=== PATIENT | female | born 1975 | race Caucasian/White ===

== ENCOUNTER 2018-01-22 19:52 | Emergency (ER) | payer OTHER ==
[~2018-01-22] VITALS: Ht 157.5 cm; Wt 61.2 kg
[~2018-01-22 19:52] MED LIST: AMITRIPTYLINE H10 M3 PO; CARISOPRODOL 3350 MG PO; CLONAZEPAM 1 MG1 M1 PO; FLEXERIL PO; HYDROCODON-ACE1 EAC7 PO; IBUPROFEN 800800 MG PO; KEFLEX250 M1 PO; MEDROLDOSEPACK PO; NEO-BACIT-POLY3.5 GM OP; NORCO 5-325 TA1 EAC1 PO; OMEPRAZOLE; PROAIR HFA8.5 GM INH; REQUIP1 MG PO; ROBAXIN 750 MG750 M1 PO
[2018-01-22 20:21] LABS: URINE BLOOD 3+ (Negative); URINE CLARITY CLEAR; URINE COLOR YELLOW; URINE GLUCOSE-RANDOM NEGATIVE (Negative); URINE KETONES NEGATIVE (Negative); URINE PROTEIN TRACE (Negative)
[2018-01-22 20:24] LABS: ICTOTEST (BILI CONFIRMATORY) Negative (Negative); URINE BILIRUBIN 1+ (Negative); URINE LEUKOCYTES-REFLEX 3+ (Negative); URINE NITRITE-REFLEX POSITIVE (Negative)
[2018-01-22 20:29] LABS: CALCIUM OXALATE 0-3 Few /LPF (None Seen)
[2018-01-22 20:30] LABS: ABSOLUTE BASOPHILS 0.1 thou/uL (0.0-0.2); ABSOLUTE EOSINOPHILS 0.3 thou/uL (0.0-0.7); ABSOLUTE LYMPHOCYTES 3.6 thou/uL (0.8-5.3); ABSOLUTE MONOCYTES 0.9 thou/uL (0.0-1.2); ABSOLUTE NEUTROPHILS 3.9 thou/uL (1.6-8.1); BASOPHILS 0.8 %; EOSINOPHILS 3.2 %; HEMATOCRIT 43.7 % (37.0-47.0); HEMOGLOBIN 14.6 gm/dL (12.0-15.0); LYMPHOCYTES 41.1 %; MCH 28.5 pg (26.0-34.0); MCHC 33.3 g/dL (28.0-37.0); MCV 85.5 fL (80.0-100.0); MONOCYTES 10.2 %; MPV 9.9 fl. (7.2-11.1); NUCLEATED RBCS 0 /100WBC; PLATELET COUNT* 217 thou/uL (150-400); POLYS 44.7 %; RBC 5.11 mil/uL (4.20-5.00); RDW-CV 14.4 % (10.5-14.5); WBC 8.8 thou/uL (4.0-11.0)
[2018-01-22 20:30] LABS: BACTERIA-REFLEX >30 Many /HPF (None Seen); MUCUS None Seen strn/LPF (None Seen); SQUAMOUS 0-3 Few /LPF (0-3); URINE WBC-REFLEX >25 Many /HPF (0-5); WBC CLUMPS Few (None Seen)
[2018-01-22 20:31] LABS: CASTS None Seen /LPF (None Seen)
[2018-01-22 20:38] LABS: ANION GAP 10 mmol/L (7-16); BUN 19 mg/dL (7-18); CALCIUM 8.8 mg/dL (8.5-10.1); CHLORIDE 104 mmol/L (98-107); CO2 27 mmol/L (21-32); CREATININE 1.1 mg/dL (0.6-1.3); GLUCOSE 98 mg/dL (70-99); POTASSIUM 3.5 mmol/L (3.5-5.1); SODIUM 141 mmol/L (136-145)
[2018-01-22 20:44] LABS: ALBUMIN 3.9 g/dL (3.4-5.0); ALKALINE PHOSPHATASE 73 U/L (46-116); SGOT 30 U/L (15-37); SGPT 31 U/L (30-65); TOTAL BILIRUBIN 0.8 mg/dL (<0.1-1.0); TOTAL PROTEIN 8.5 g/dL (6.4-8.2); TROPONIN-I LEVEL <0.06 ng/mL (<0.06)
[2018-01-22] MEDS ORDERED: ZOFRAN ODT4 MG PO (21:24)
[2018-01-22] MEDS ORDERED: BACTRIM DS TAB1 EACH PO (21:24)
[2018-01-22 21:41] VITALS: BP 122/82
--- NOTE | 2018-01-23 13:01 | EKG ---
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 : 1975 Requested By: Charo Franz Order Number: [id number] MD: Brendan Wylie Measurements Intervals [place] Rate: 107 P: 83 [place]: 123 QRS: 71 QRSD: 103 T: 60 QT: 350 QTc: 467 Interpretive Statements Sinus tachycardia Probable left atrial enlargement Compared to ECG 01/17/2017 18:14:30 No significant changes Electronically Signed On 01-23-2018 13:01:43 OUT[employer]ARD MOTOR [employer]SEMBLER by Brendan Wylie [email or web address] <ELECTRONICALLY SIGNED> By: Brendan Wylie MD, [facility] 01/23/18 1301 18 18 Brendan Wylie MD, FACC /EPI
== END 2018-01-22 21:42 | disposition home or self-care (01) ==
LOC: M.ERS 19:52
PROVIDERS: Physician Assistant
DX: N39.0 Urinary tract infection, site not specified (principal); K21.9 Gastro-esophageal reflux disease without esophagitis; F32.9 Major depressive disorder, single episode, unspecified; F41.9 Anxiety disorder, unspecified; F17.200 Nicotine dependence, unspecified, uncomplicated; Z88.6 Allergy status to analgesic agent

== ENCOUNTER 2018-05-02 09:47 | Emergency (ER) | payer OTHER ==
[~2018-05-02] VITALS: Ht 157.5 cm; Wt 56.7 kg
[~2018-05-02 09:47] MED LIST changes: +BACTRIM DS TAB1 EACH PO; +ZOFRAN ODT4 MG PO
[2018-05-02] MEDS ORDERED: LEXAPRO20 MG PO (09:59)
[2018-05-02] MEDS ORDERED: XANAX1 MG PO (09:59)
[2018-05-02] MEDS ORDERED: CARISOPRODOL 3350 MG PO (10:00)
[2018-05-02] MEDS ORDERED: IBUPROFEN 800800 M1 PO (10:00)
[2018-05-02 10:40] LABS: ABSOLUTE BASOPHILS 0.1 thou/uL (0.0-0.2); ABSOLUTE EOSINOPHILS 0.2 thou/uL (0.0-0.7); ABSOLUTE LYMPHOCYTES 2.4 thou/uL (0.8-5.3); ABSOLUTE MONOCYTES 0.8 thou/uL (0.0-1.2); ABSOLUTE NEUTROPHILS 2.9 thou/uL (1.6-8.1); EOSINOPHILS 3.5 %; HEMATOCRIT 43.6 % (37.0-47.0); HEMOGLOBIN 14.5 gm/dL (12.0-15.0); LYMPHOCYTES 37.3 %; MCH 28.7 pg (26.0-34.0); MCHC 33.2 g/dL (28.0-37.0); MCV 86.5 fL (80.0-100.0); MPV 9.7 fl. (7.2-11.1); NUCLEATED RBCS 0 /100WBC; PLATELET COUNT* 192 thou/uL (150-400); POLYS 45.2 %; RBC 5.05 mil/uL (4.20-5.00); RDW-CV 15.3 % (10.5-14.5); WBC 6.5 thou/uL (4.0-11.0)
[2018-05-02 10:48] LABS: CALCIUM 8.4 mg/dL (8.5-10.1); CREATININE 1.2 mg/dL (0.6-1.3); POTASSIUM 3.7 mmol/L (3.5-5.1)
[2018-05-02 10:53] LABS: ALBUMIN 3.1 g/dL (3.4-5.0); TOTAL BILIRUBIN 0.3 mg/dL (<0.1-1.0); TOTAL PROTEIN 6.9 g/dL (6.4-8.2)
[2018-05-02 11:01] LABS: URINE BILIRUBIN NEGATIVE (Negative); URINE BLOOD NEGATIVE (Negative); URINE CLARITY CLEAR; URINE COLOR YELLOW; URINE GLUCOSE-RANDOM NEGATIVE (Negative); URINE KETONES NEGATIVE (Negative); URINE NITRITE-REFLEX NEGATIVE (Negative); URINE PROTEIN NEGATIVE (Negative)
[2018-05-02 11:02] LABS: URINE LEUKOCYTES-REFLEX 2+ (Negative)
[2018-05-02] MEDS ORDERED: IBUPROFEN 600600 M1 PO (11:02)
[2018-05-02] MEDS ORDERED: ERYTHROMYCIN E3.5 G3 OPHTHALMIC (11:02)
[2018-05-02] MEDS ORDERED: NORCO 5-325 TA1 EAC1 PO (11:03)
[2018-05-02 11:09] LABS: SQUAMOUS >10 Many /LPF (0-3)
[2018-05-02 11:10] LABS: BACTERIA-REFLEX >30 Many /HPF (None Seen); CASTS None Seen /LPF (None Seen); CRYSTALS None Seen /LPF (None Seen); URINE RBC 0-2 Rare /HPF (0-2); URINE WBC-REFLEX 6-15 Few /HPF (0-5)
[2018-05-02] MEDS ORDERED: MACROBID 100 M100 M1 PO (11:11)
[2018-05-02 11:31] VITALS: BP 124/85
== END 2018-05-02 11:32 | disposition home or self-care (01) ==
LOC: M.ERS 09:47
PROVIDERS: Nurse Practitioner Family
DX: H11.421 Conjunctival edema, right eye (principal); N39.0 Urinary tract infection, site not specified; K21.9 Gastro-esophageal reflux disease without esophagitis; F32.9 Major depressive disorder, single episode, unspecified; F41.9 Anxiety disorder, unspecified; F17.200 Nicotine dependence, unspecified, uncomplicated; Z88.8 Allergy status to other drugs, medicaments and biological substances; Z88.6 Allergy status to analgesic agent

== ENCOUNTER 2018-06-09 16:33 | Emergency (ER) | payer OTHER ==
[~2018-06-09] VITALS: Ht 157.5 cm; Wt 61.2 kg
[~2018-06-09 16:33] MED LIST changes: +ERYTHROMYCIN E3.5 G3 OPHTHALMIC; +IBUPROFEN 600600 M1 PO; +IBUPROFEN 800800 M1 PO; +LEXAPRO20 MG PO; +MACROBID 100 M100 M1 PO; +XANAX1 MG PO
[2018-06-09] MEDS ORDERED: HYDROXYZINE HCL25 M1 PO (17:07)
[2018-06-09] MEDS ORDERED: MEDROLDOSEPACK PO (17:07)
[2018-06-09 17:29] VITALS: BP 135/87
== END 2018-06-09 17:31 | disposition home or self-care (01) ==
LOC: M.ERS 16:33
DX: S90.862A Insect bite (nonvenomous), left foot, initial encounter (principal); S90.861A Insect bite (nonvenomous), right foot, initial encounter; B88.0 Other acariasis; K21.9 Gastro-esophageal reflux disease without esophagitis; F32.9 Major depressive disorder, single episode, unspecified; F41.9 Anxiety disorder, unspecified; Z88.8 Allergy status to other drugs, medicaments and biological substances; W57.XXXA Bitten or stung by nonvenomous insect and other nonvenomous arthropods, initial encounter; Y93.89 Activity, other specified; Y92.89 Other specified places as the place of occurrence of the external cause; Y99.8 Other external cause status

== ENCOUNTER 2019-03-28 02:34 | Emergency (ER) | payer OTHER ==
[~2019-03-28] VITALS: Ht 162.6 cm; Wt 55.3 kg
[~2019-03-28 02:34] MED LIST changes: +HYDROXYZINE HCL25 M1 PO
[2019-03-28] MEDS ORDERED: BACTRIM DS TAB1 EACH PO ×2 (02:50→03:10)
[2019-03-28] MEDS ORDERED: NORCO 5-325 TA1 EACH PO ×2 (02:50→03:10)
[2019-03-28 03:14] VITALS: BP 144/85
--- NOTE | 2019-03-28 11:43 | EKG ---
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
== END 2019-03-28 03:42 | disposition home or self-care (01) ==
LOC: M.ERS 02:34
DX: S60.561A Insect bite (nonvenomous) of right hand, initial encounter (principal); F17.210 Nicotine dependence, cigarettes, uncomplicated; Z88.8 Allergy status to other drugs, medicaments and biological substances; W57.XXXA Bitten or stung by nonvenomous insect and other nonvenomous arthropods, initial encounter; Y93.89 Activity, other specified; Y92.89 Other specified places as the place of occurrence of the external cause; Y99.8 Other external cause status

== ENCOUNTER 2019-04-01 22:11 | Emergency (ER) | payer OTHER ==
[~2019-04-01] VITALS: Ht 157.5 cm; Wt 53.8 kg
[~2019-04-01 22:11] MED LIST changes: +NORCO 5-325 TA1 EACH PO
[2019-04-01] MEDS ORDERED: VISTARIL 25 MG25 M1 PO (22:43)
[2019-04-01] MEDS ORDERED: NORCO 5-325 TA1 EACH PO (22:43)
[2019-04-01 23:06] VITALS: BP 120/76
== END 2019-04-01 23:06 | disposition home or self-care (01) ==
LOC: M.ERS 22:11
DX: L02.511 Cutaneous abscess of right hand (principal); Z76.0 Encounter for issue of repeat prescription; F17.210 Nicotine dependence, cigarettes, uncomplicated; F32.9 Major depressive disorder, single episode, unspecified; F41.9 Anxiety disorder, unspecified; K21.9 Gastro-esophageal reflux disease without esophagitis; Z88.8 Allergy status to other drugs, medicaments and biological substances; Z98.890 Other specified postprocedural states

== ENCOUNTER 2019-11-14 14:49 | Emergency (ER) | payer OTHER ==
[~2019-11-14] VITALS: Ht 160 cm; Wt 54.9 kg
[~2019-11-14 14:49] MED LIST changes: +VISTARIL 25 MG25 M1 PO
[2019-11-14 17:05] LABS: ABSOLUTE BASOPHILS 0.1 thou/uL (0.0-0.2); ABSOLUTE EOSINOPHILS 0.1 thou/uL (0.0-0.7); ABSOLUTE LYMPHOCYTES 2.4 thou/uL (0.8-5.3); ABSOLUTE MONOCYTES 0.7 thou/uL (0.0-1.2); ABSOLUTE NEUTROPHILS 7.4 thou/uL (1.6-8.1); BASOPHILS 0.6 %; EOSINOPHILS 0.5 %; HEMATOCRIT 48.3 % (37.0-47.0); HEMOGLOBIN 16.6 gm/dL (12.0-15.0); LYMPHOCYTES 22.5 %; MCH 30.1 pg (26.0-34.0); MCHC 34.3 g/dL (28.0-37.0); MCV 87.6 fL (80.0-100.0); MONOCYTES 6.6 %; MPV 9.4 fl. (7.2-11.1); NUCLEATED RBCS 0 /100WBC; PLATELET COUNT* 237 thou/uL (150-400); POLYS 69.8 %; RBC 5.52 mil/uL (4.20-5.00); RDW-CV 12.9 % (10.5-14.5); WBC 10.6 thou/uL (4.0-11.0)
[2019-11-14 17:09] LABS: CALCIUM 9.5 mg/dL (8.5-10.1); CREATININE 0.9 mg/dL (0.6-1.3); POTASSIUM 3.9 mmol/L (3.5-5.1)
[2019-11-14 17:13] LABS: TOTAL BILIRUBIN 0.3 mg/dL (<0.1-1.0); TOTAL PROTEIN 8.3 g/dL (6.4-8.2); URIC ACID* 3.4 mg/dL (2.6-7.2)
[2019-11-14 18:24] LABS: ESR (SEDRATE) 1 mm/hr (0-20)
[2019-11-14] MEDS ORDERED: MEDROLDOSEPACK PO (18:52)
[2019-11-14] MEDS ORDERED: ZANAFLEX4 MG PO (18:52)
[2019-11-14] MEDS ORDERED: NORCO 5-325 TA1 EAC1 PO (18:52)
[2019-11-14] MEDS ORDERED: FLEXERIL PO (19:02)
[2019-11-14 19:09] VITALS: BP 162/109
--- NOTE | 2019-11-15 13:17 | EKG ---
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: JEANINE : 1975 Requested By: Emperatriz Guajardo Order Number: [id number] MD: Brendan Wylie Measurements Intervals [place] Rate: 119 P: 70 [place]: 116 QRS: 52 QRSD: 89 T: 60 QT: 325 QTc: 458 Interpretive Statements Sinus tachycardia Baseline wander in lead(s) I,II,aVR Compared to ECG 03/28/2019 02:45:24 Sinus rhythm no longer present Electronically Signed On 11-15-2019 13:17:14 DATA KEYER by Brendan Wylie [email or web address] <ELECTRONICALLY SIGNED> By: Brendan Wylie MD, [facility] 11/15/19 1317 1708 07 Brendan Wylie MD, [facility] /EPI
== END 2019-11-14 19:09 | disposition home or self-care (01) ==
LOC: M.ERS 14:49
PROVIDERS: Nurse Practitioner Family
DX: M65.311 Trigger thumb, right thumb (principal); I73.00 Raynaud's syndrome without gangrene; M54.32 Sciatica, left side; M25.552 Pain in left hip; F17.210 Nicotine dependence, cigarettes, uncomplicated; K21.9 Gastro-esophageal reflux disease without esophagitis; F41.9 Anxiety disorder, unspecified; F32.9 Major depressive disorder, single episode, unspecified; Z98.51 Tubal ligation status; Z88.8 Allergy status to other drugs, medicaments and biological substances

== ENCOUNTER 2020-02-04 12:17 | Emergency (ER) | payer OTHER ==
[~2020-02-04] VITALS: Ht 157.5 cm; Wt 74.8 kg
[~2020-02-04 12:17] MED LIST changes: +ZANAFLEX4 MG PO
[2020-02-04 12:44] LABS: URINE BILIRUBIN NEGATIVE (Negative); URINE BLOOD TRACE (Negative); URINE CLARITY CLOUDY; URINE COLOR YELLOW; URINE GLUCOSE-RANDOM NEGATIVE (Negative); URINE KETONES NEGATIVE (Negative); URINE LEUKOCYTES-REFLEX 3+ (Negative); URINE NITRITE-REFLEX POSITIVE (Negative); URINE PROTEIN NEGATIVE (Negative); URINE SPECIFIC GRAVITY 1.015 (1.005-1.030); URINE UROBILINOGEN 0.2 E.U./dl (0.2-1.0)
[2020-02-04 12:51] LABS: SQUAMOUS 0-3 Few /LPF (0-3); WBC CLUMPS Few (None Seen)
[2020-02-04 12:52] LABS: BACTERIA-REFLEX >30 Many /HPF (None Seen); CASTS None Seen /LPF (None Seen); CRYSTALS None Seen /LPF (None Seen); MUCUS 0-3 Light strn/LPF (None Seen); URINE RBC 0-2 Rare /HPF (0-2); URINE WBC-REFLEX >25 Many /HPF (0-5)
[2020-02-04] MEDS ORDERED: HYDROXYZINE HCL25 M2 PO (13:25)
[2020-02-04] MEDS ORDERED: VOLTAREN GEL 1100 G1 TOP (13:25)
[2020-02-04] MEDS ORDERED: KEFLEX500 M2 PO (13:25)
[2020-02-04 13:52] VITALS: BP 131/70
== END 2020-02-04 14:00 | disposition home or self-care (01) ==
LOC: M.ERS 12:17
PROVIDERS: Physician Assistant
DX: N39.0 Urinary tract infection, site not specified (principal); I73.00 Raynaud's syndrome without gangrene; M65.311 Trigger thumb, right thumb; R05 Cough; K21.9 Gastro-esophageal reflux disease without esophagitis; F32.9 Major depressive disorder, single episode, unspecified; F41.9 Anxiety disorder, unspecified; F17.210 Nicotine dependence, cigarettes, uncomplicated; Z98.51 Tubal ligation status; Z88.8 Allergy status to other drugs, medicaments and biological substances

== ENCOUNTER 2020-05-14 03:06 | Emergency (ER) | payer OTHER ==
[~2020-05-14] VITALS: Ht 157.5 cm; Wt 59.0 kg
[~2020-05-14 03:06] MED LIST changes: +HYDROXYZINE HCL25 M2 PO; +KEFLEX500 M2 PO; +VOLTAREN GEL 1100 G1 TOP
[2020-05-14] MEDS ORDERED: TRAMADOL 50 MG50 MG PO (04:08)
[2020-05-14] MEDS ORDERED: MEDROLDOSEPACK PO (04:08)
[2020-05-14 04:55] VITALS: BP 173/112
== END 2020-05-14 04:59 | disposition home or self-care (01) ==
LOC: M.ERS 03:06
DX: M79.641 Pain in right hand (principal); K21.9 Gastro-esophageal reflux disease without esophagitis; G35 Multiple sclerosis; M32.9 Systemic lupus erythematosus, unspecified; F17.210 Nicotine dependence, cigarettes, uncomplicated; Z88.8 Allergy status to other drugs, medicaments and biological substances; Z98.51 Tubal ligation status